=== PATIENT | male | born 1970 | race Caucasian/White ===

== ENCOUNTER 2021-01-26 22:31 | Emergency (ER) | payer OTHER ==
[~2021-01-26 22:31] MED LIST: ALDACTONE25 MG PO; ANORO ELLIPTA1 EACH INH; ASPIRIN CHEWABL81 MG PO; CERTAGEN1 EACH PO; CLARITIN10 MG PO; CULTURELLE1 EAC1; ERGOCAL2500 UNIT PO; FLONASE ALLER15.8 ML; FLOVENT HF120 PUFFS/ INH; FOLIC ACID1 MG PO; LACTINEX1 EACH PO; LASIX20 MG PO; LEVAQUIN500 MG PO; NORVASC5 MG PO; OMEPRAZOLE40 MG PO; SINGULAIR10 MG PO; SPIRIVA 18MCG18 MCG INH; SYMBICORT 80-10.2 GM INH; SYNTHROID100 MCG PO; SYNTHROID112 MCG PO; VENTOLIN HFA IN18 GM INH; VITAMIN D50000 UNIT PO
[2021-01-26 23:14] LABS: BASOPHIL 0.4 % (0-2); EOSINOPHIL 0.9 % (0-5); HCT 30.5 % (42.0-52.0); LYMPHOCYTE 10.9 % (15-48); MCH 34.7 pg (25.0-31.0); MCHC 31.5 g/dL (32.0-36.0); MCV 110.1 fL (78.0-100.0); MONOCYTE 7.9 % (0-12); MPV 10.2 fL (6.0-9.5); NEUTROPHIL 79.7 % (41-80); NRBC 0; PLT 247 K/uL (150-400); RBC 2.77 M/uL (4.70-6.00); RDW 16.1 % (11.5-14.0); WBC 9.3 K/uL (4.0-10.5)
[2021-01-26 23:16] LABS: HGB 9.6 g/dl (13.2-18.0)
[2021-01-26 23:32] LABS: ALBUMIN 3.9 g/dL (3.4-5.0); BILIRUBIN - TOTAL 0.3 mg/dL (0.2-1.0); BUN/CREAT RATIO (CALC) 9.8 RATIO; CREATININE 1.02 mg/dL (0.67-1.17); GLOBULIN (CALCULATION) 3.2 g/dL; POTASSIUM 3.6 mmol/L (3.5-5.1); TOTAL PROTEIN 7.1 g/dL (6.4-8.2)
[2021-01-26 23:36] LABS: LACTIC ACID 0.9 mmol/L (0.4-1.9)
[2021-01-26 23:37] LABS: CORONAVIRUS 2019 SARS-COV-2 NEGATIVE (NEGATIVE); INFLUENZA A NAA NEGATIVE (NEGATIVE)
[2021-01-26 23:40] LABS: PRO-BNP 254 pg/mL (<125)
[2021-01-27] MEDS ORDERED: ZPAK PO (01:21)
== END 2021-01-27 01:56 | disposition home or self-care (01) ==
LOC: FER 22:31
PROVIDERS: Emergency Medicine
DX: J44.1 Chronic obstructive pulmonary disease with (acute) exacerbation (principal); I50.9 Heart failure, unspecified; F17.200 Nicotine dependence, unspecified, uncomplicated; Z20.822 Contact with and (suspected) exposure to COVID-19
CPT/HCPCS: 36415; 71045; 80053; 83605; 83880; 84484; 85025; 85379; 87040; 93005; 94640; J2930; U0002